=== PATIENT | male | born 1975 | race Caucasian/White ===

== ENCOUNTER 2018-01-08 00:47 | Emergency (ER) | payer SELFPAY ==
[~2018-01-08] VITALS: Ht 188 cm; Wt 104.5 kg
[2018-01-08] MEDS ORDERED: OMEG-135 PO (00:58)
[2018-01-08] MEDS ORDERED: AMLO-512 PO (00:58)
[2018-01-08] MEDS ORDERED: OLAN10TA3 PO (00:58)
[2018-01-08] MEDS: PB/HYOSCY/ATR/SCOP/LIDO/MAALOX 55 ML BOTTLE PO ONE (01:26)
[2018-01-08 02:08] VITALS: BP 117/71
== END 2018-01-08 02:37 | disposition home or self-care (01) ==
LOC: EMS 00:48
DX: R10.13 Epigastric pain (principal); I10 Essential (primary) hypertension; J44.9 Chronic obstructive pulmonary disease, unspecified; Z87.891 Personal history of nicotine dependence
CPT/HCPCS: 93005; 99283; Z7610

== ENCOUNTER 2019-01-30 08:37 | Emergency (ER) | payer SELFPAY ==
[~2019-01-30] VITALS: Ht 188 cm; Wt 90.9 kg
[~2019-01-30 08:37] MED LIST: AMLO-512 PO; OLAN10TA3 PO; OMEG-135 PO
[2019-01-30 09:12] LABS: BASOPHILS % (AUTO) 0.4 % (0.0-2.0); EOSINOPHILS % (AUTO) 0.5 % (1.0-6.0); HEMATOCRIT 44.4 % (41-53); LYMPHOCYTES % (AUTO) 9.6 % (22.0-44.0); MEAN CORPUSCULAR HEMOGLOBIN 32.4 pg (26.0-34.0); MEAN CORPUSCULAR HGB CONC 33.8 G/dL (31.0-37.0); MEAN CORPUSCULAR VOLUME 96 fL (80-100); MONOCYTES # (AUTO) 1.1 K/uL (0.1-1.0); MONOCYTES % (AUTO) 10.9 % (2.0-9.0); NEUTROPHILS # (AUTO) 8.3 K/uL (1.8-7.7); NEUTROPHILS % (AUTO) 78.6 % (40.0-70.0); PLATELET COUNT (AUTO) 340 K/uL (150-450); RED BLOOD CELL COUNT(AUTO) 4.64 MIL/uL (4.50-5.90)
[2019-01-30 09:21] LABS: ANION GAP 11 mmol/L (8-16); CALCIUM, TOTAL 8.6 mg/dL (8.8-10.5); CARBON DIOXIDE 29 mmol/L (22-29); CHLORIDE 104 mmol/L (98-107); CREATININE 1.06 mg/dL (0.60-1.30); GLOMERULAR FILTR. RATE CALC > 60 mL/min (>60); GLUCOSE,RANDOM 98 mg/dL (70-110); POTASSIUM 3.7 mmol/L (3.5-5.1); SODIUM SERUM 144 mmol/L (136-145); UREA NITROGEN, BLOOD 21 mg/dL (7-18)
[2019-01-30 09:27] LABS: ALANINE AMINOTRANSFERASE 40 U/L (12-78); ALKALINE PHOSPHATASE 73 U/L (46-116); ASPARTATE AMINOTRANSFERASE 24 U/L (15-37); BILIRUBIN,TOTAL 0.2 mg/dL (0.1-1.0)
[2019-01-30 09:40] LABS: AMPHET/METH SCREEN,URINE NEGATIVE (NEGATIVE); BARBITURATE SCREEN, URINE NEGATIVE (NEGATIVE); BENZODIAZEPINES SCREEN,URINE NEGATIVE (NEGATIVE); CANNABINOID SCREEN,URINE NEGATIVE (NEGATIVE); COCAINE SCREEN,URINE NEGATIVE (NEGATIVE); METHADONE SCREEN, URINE NEGATIVE (NEGATIVE); OPIATE SCREEN,URINE NEGATIVE (NEGATIVE)
[2019-01-30 09:41] LABS: PHENCYCLIDINE SCREEN,URINE NEGATIVE (NEGATIVE)
[2019-01-30] MEDS ORDERED: BACITRACIN 0.9 GM PACKET OINTMENT TP ONE (10:00)
[2019-01-30] MEDS ORDERED: LIDOCAINE/PF 1% 2 ML VIAL IM ONE (10:15)
[2019-01-30] MEDS ORDERED: CefTRIAXone SODIUM 1 GM/VIAL IM ONE (10:15)
[2019-01-30] MEDS ORDERED: OLANZapine 5 MG TABLET PO ONE (10:30)
[2019-01-30] MEDS ORDERED: IBUPROFEN 600 MG TABLET PO ONE (10:30)
[2019-01-30 13:28] VITALS: BP 120/65
== END 2019-01-30 13:43 | disposition home or self-care (01) ==
LOC: EMS 08:39
DX: S61.402A Unspecified open wound of left hand, initial encounter (principal); L03.114 Cellulitis of left upper limb; F20.9 Schizophrenia, unspecified; I10 Essential (primary) hypertension; J44.9 Chronic obstructive pulmonary disease, unspecified; Z87.891 Personal history of nicotine dependence; Z79.899 Other long term (current) drug therapy; X58.XXXA Exposure to other specified factors, initial encounter; Y93.89 Activity, other specified; Y92.89 Other specified places as the place of occurrence of the external cause; Y99.8 Other external cause status
CPT/HCPCS: 36415; 80053; 80307; 85025; 96372; 99285; G0480; J0696; J3490